=== PATIENT | female | born 1930 | race African-American/Black ===

== ENCOUNTER 2018-09-25 03:06 | Emergency (ER) | payer MEDICARE, MEDICAID ==
[~2018-09-25] VITALS: Ht 165.1 cm; Wt 68.0 kg
[2018-09-25 04:01] VITALS: BP 0/0
[2018-09-25] MEDS ORDERED: SODIUM BICARBONATE 7.5% 0.9 MEQ/ML 50ML SYR IV ONE (13:05)
[2018-09-25] MEDS ORDERED: EPINEPHRINE 0.1MG/ML (1:10,000) 10ML SYR ONE (13:05)
== END 2018-09-25 05:00 | disposition expired ==
LOC: EDBD 03:06 → ER 03:06
DX: I46.9 Cardiac arrest, cause unspecified (principal); I11.0 Hypertensive heart disease with heart failure; I50.9 Heart failure, unspecified; I25.10 Atherosclerotic heart disease of native coronary artery without angina pectoris; E78.00 Pure hypercholesterolemia, unspecified; J44.9 Chronic obstructive pulmonary disease, unspecified; Z98.890 Other specified postprocedural states; Z95.0 Presence of cardiac pacemaker
CPT/HCPCS: 31500; 92950; 99285; J3490